=== PATIENT | male | born 1995 | race African-American/Black ===

== ENCOUNTER 2017-02-02 08:09 | Emergency (ER) | payer SELFPAY ==
[~2017-02-02] VITALS: Ht 167.6 cm; Wt 76.0 kg
[2017-02-02 08:10] VITALS: BP 131/99
[2017-02-02] MEDS ORDERED: LIDOCAINE HCL/PF 1% 2 ML VIAL IM ONE (10:00)
[2017-02-02] MEDS ORDERED: DEXAMETHASONE SOD PHOS 4 MG/ML 5 ML VIAL IM ONE (10:00)
[2017-02-02] MEDS ORDERED: ACETAMINOPHEN 500 MG TABLET PO ONE (10:00)
[2017-02-02] MEDS ORDERED: CefTRIAXone SODIUM 1 GM/VIAL IM ONE (10:00)
== END 2017-02-02 10:21 | disposition home or self-care (01) ==
LOC: EMS 08:11
DX: J02.9 Acute pharyngitis, unspecified (principal)
CPT/HCPCS: 71010; 96372; 99284; J0696; J1100; J3490